=== PATIENT | male | born 1935 | race Hispanic/Latino ===

== ENCOUNTER 2017-09-11 12:41 | Emergency (ER) | payer MEDICARE ==
[~2017-09-11] VITALS: Ht 165.1 cm; Wt 82.1 kg
[~2017-09-11 12:41] MED LIST: FENOFIBRATE160 MG PO; GLIPIZIDE5 MG PO; LEVOTHYROXINE50 MCG PO; LOVASTATIN20 MG PO; METFORMIN HCL500 MG PO; NOVOLIN 70100 UNITS/ SC; TOBRADEX EYE O3.5 GM OP; VASOTEC10 M1 PO
[2017-09-11 14:43] LABS: BILIRUBIN,URINE NEGATIVE (NEGATIVE); CLARITY,URINE HAZY (CLEAR); COLOR,URINE YELLOW (YELLOW); KETONES,URINE NEGATIVE (NEGATIVE); LEUKOCYTE ESTERASE ,URINE NEGATIVE (NEGATIVE); NITRITE,URINE NEGATIVE (NEGATIVE); URINE UROBILINOGEN 0.2 mg/dL (0.2 - 1)
[2017-09-11 14:45] LABS: PROTEIN,URINE DIPSTICK 1+ (NEGATIVE)
[2017-09-11 15:13] LABS: EPITHELIAL CELLS,URINE RARE /LPF; RBC,URINE 0-5 /HPF (0-5); WBC,URINE (MAN) 0-5 /HPF (0-5)
[2017-09-11 15:14] LABS: INFLUENZAE A&B ANTIGEN (RAPID) POSITIVE FLU B (NEGATIVE); STREPTOCOCCUS GRP A ANTIGEN NEGATIVE (NEGATIVE)
[2017-09-11 15:23] LABS: BASOPHILS % 0.4 % (0.0-1.0); EOSINOPHILS % 0.1 % (0.0-6.0); HEMATOCRIT 42.8 % (38.2-49.6); HEMOGLOBIN 14.2 g/dL (14.0-18.0); LYMPHOCYTES # (AUTO) 1.6 (1.0-3.2); LYMPHOCYTES % 19.4 % (18.0-39.1); MEAN CORPUSCULAR HEMOGLOBIN 28.2 pg (28-32); MEAN CORPUSCULAR HGB CONC 33.2 g/dL (31-35); MEAN CORPUSCULAR VOLUME 85.1 fL (81-99); MONOCYTES # (AUTO) 0.8 (0.2-0.8); MONOCYTES % 9.7 % (4.4-11.3); NEUTROPHILS # (AUTO) 5.6 (2.1-6.9); PLATELET COUNT 244 x10e3/uL (140-360); RED BLOOD COUNT 5.03 x10e6/uL (4.3-5.7); RED CELL DISTRIBUTION WIDTH 13.6 % (11.7-14.4)
[2017-09-11] MEDS ORDERED: SODIUM CHLORIDE 0.9% 1000ML 1,000 ML IV SCH (15:45)
[2017-09-11] MEDS ORDERED: OSELTAMIVIR PHOSPHATE 75 MG CAP PO ONE (15:45)
[2017-09-11 15:46] LABS: ANION GAP 15.9 mmol/L (8-16); BLOOD UREA NITROGEN 16 mg/dL (7-26); BUN/CREATININE RATIO 16 (6-25); CALCIUM 9.5 mg/dL (8.4-10.2); CARBON DIOXIDE 23 mmol/L (22-29); CHLORIDE 104 mmol/L (98-107); EST GLOMERULAR FILTRATION RATE > 60 ML/MIN (60-); GLUCOSE 206 mg/dL (74-118); POTASSIUM 3.9 mmol/L (3.5-5.1); SODIUM 139 mmol/L (136-145)
--- NOTE | 2017-09-11 18:04 | Diagnostic Imaging Report ---
EXAM: XR CHEST 2 VIEWS DATE: 09/11/2017 1:25 PM INDICATION: COMPARISON: None FINDINGS: Lines and Tubes: None Heart and Mediastinum: Heart upper limits of normal. Lungs and Pleura: Probable basilar atelectasis. Bones and Soft Tissues: No acute findings. IMPRESSION: 1. Probable basilar atelectasis. Correlation recommended. Signed by: Dr. Ramos Colin MD on 09/11/2017 6:00 PM
== END 2017-09-11 17:05 | disposition home or self-care (01) ==
LOC: ER 12:41
DX: R50.9 Fever, unspecified (principal); R05 Cough; J11.1 Influenza due to unidentified influenza virus with other respiratory manifestations; I10 Essential (primary) hypertension; E11.9 Type 2 diabetes mellitus without complications
CPT/HCPCS: 36415; 71020; 80048; 81001; 83518; 85025; 87040; 87070; 87086; 87186; 87400; 99284

== ENCOUNTER 2023-02-19 14:11 | Inpatient (IN) | payer MEDICARE ==
[~2023-02-19] VITALS: Ht 162.6 cm; Wt 72.6 kg
[2023-02-19] MEDS ORDERED: SODIUM CHLORIDE 0.9% 1000ML 1,000 ML IV STA ×3 (14:47→15:18)
[2023-02-19 15:09] LABS: BASOPHILS # (AUTO) 0.1 (0.0-0.1); BASOPHILS % 0.6 % (0.0-1.0); EOSINOPHILS # (AUTO) 0.6 (0.0-0.4); EOSINOPHILS % 6.7 % (0.0-6.0); HEMATOCRIT 34.8 % (38.2-49.6); LYMPHOCYTES # (AUTO) 2.3 (1.0-3.2); MEAN CORPUSCULAR HEMOGLOBIN 26.6 pg (28-32); MEAN CORPUSCULAR HGB CONC 31.6 g/dL (31-35); MEAN CORPUSCULAR VOLUME 84.3 fL (81-99); MONOCYTES # (AUTO) 0.6 (0.2-0.8); MONOCYTES % 7.2 % (4.4-11.3); NEUTROPHILS # (AUTO) 4.7 (2.1-6.9); NEUTROPHILS % 57.1 % (38.7-80.0); PLATELET COUNT 327 x10e3/uL (140-360); RED BLOOD COUNT 4.13 x10e6/uL (4.3-5.7); RED CELL DISTRIBUTION WIDTH 14.2 % (11.7-14.4)
[2023-02-19 15:11] LABS: INR 0.9; PARTIAL THROMBOPLASTIN TIME 29.8 seconds (23.8-35.5); PROTHROMBIN TIME 12.6 seconds (11.9-14.5)
[2023-02-19 15:20] LABS: ALBUMIN 3.4 g/dL (3.5-5.0); ALBUMIN/GLOBULIN RATIO 0.9 (0.8-2.0); ANION GAP 18.9 mmol/L (8-16); CALCIUM 9.6 mg/dL (8.4-10.2); CREATININE, SERUM 1.06 mg/dL (0.72-1.25); MAGNESIUM 1.5 MG/DL (1.3-2.1); POTASSIUM 3.9 mmol/L (3.5-5.1)
[2023-02-19] MEDS ORDERED: SODIUM CHLORIDE 0.9% 1000ML 3,000 ML ONE (15:30)
[2023-02-19] MEDS ORDERED: PIPERACILLIN/TAZOBACTAM 3.375 GM VIAL ONE (15:31)
[2023-02-19] MEDS ORDERED: SODIUM CHLORIDE 0.9% 250ML 250 ML ONE ×2 (15:35→17:10)
[2023-02-19] MEDS ORDERED: IOPAMIDOL 370 MG/ML 100 ML INFUS..BTL INJ ONE (15:35)
[2023-02-19 15:40] LABS: B-TYPE NATRIURETIC PEPTIDE2 10.4 pg/mL (0-100)
[2023-02-19] MEDS ORDERED: Vancomycin IV 1 GM in SODIUM CHLORIDE 0.9% 250ML 250 ML IV ONE (16:00)
[2023-02-19 17:05] LABS: CLARITY,URINE CLOUDY (CLEAR); COLOR,URINE RED (YELLOW)
[2023-02-19 17:06] LABS: KETONES,URINE 2+ (NEGATIVE); LEUKOCYTE ESTERASE ,URINE LARGE (NEGATIVE); NITRITE,URINE NEGATIVE (NEGATIVE); PROTEIN,URINE DIPSTICK >=300 (NEGATIVE); URINE UROBILINOGEN 4 mg/dL (0.2 - 1)
[2023-02-19 17:07] LABS: BACTERIA,URINE FEW /HPF; EPITHELIAL CELLS,URINE FEW /LPF; RBC,URINE >50 /HPF (0-5)
[2023-02-19 17:08] LABS: MUCUS,URINE FEW (RARE)
[2023-02-19] MEDS ORDERED: Vancomycin IV 1 GM VIAL ONE (17:09)
[2023-02-19] MEDS ORDERED: ONDANSETRON HCL INJ 2MG/ML 2ML 2 MG/ML VIAL IV PRN (18:00)
[2023-02-19] MEDS ORDERED: SODIUM CHLORIDE 0.9% 1000ML 1,000 ML IV ONE (18:00)
[2023-02-19 21:30] VITALS: BP 168/70; PULSE 79; RESP 18; TEMP 97.3; O2SAT 98
[2023-02-19 22:25] VITALS: BP 183/73; PULSE 78; RESP 20; TEMP 97.3; O2SAT 95
[2023-02-19 22:35] VITALS: BP 183/73; PULSE 78; RESP 20; TEMP 97.3; O2SAT 95
[2023-02-19] MEDS ORDERED: LISINOPRIL-HCT1 EACH (23:16)
[2023-02-19] MEDS ORDERED: ATORVASTATIN CA20 MG PO (23:16)
[2023-02-19] MEDS ORDERED: PROBIOTICS1 EACH (23:16)
[2023-02-19] MEDS ORDERED: CLOPIDOGREL75 MG PO (23:16)
[2023-02-19] MEDS ORDERED: SINEMET 25-1001 EACH PO (23:16)
[2023-02-19] MEDS ORDERED: DOXYCYCLINE MO100 M1 PO (23:16)
[2023-02-19] MEDS ORDERED: ASPIRIN81 MG PO (23:16)
[2023-02-19] MEDS ORDERED: FINASTERIDE5 MG PO (23:16)
[2023-02-19] MEDS ORDERED: FLOMAX0.4 MG PO (23:16)
[2023-02-19] MEDS ORDERED: CLOTRIMAZOLE-BE15 GM TOP (23:19)
[2023-02-20] VITALS (7 sets, daily range): BP systolic 128–212; BP diastolic 61–77; PULSE 67–90; RESP 17–22; TEMP 97.6–98.6; O2SAT 98–100
[2023-02-20 06:16] LABS: BASOPHILS # (AUTO) 0.1 (0.0-0.1); BASOPHILS % 0.8 % (0.0-1.0); EOSINOPHILS # (AUTO) 0.5 (0.0-0.4); EOSINOPHILS % 7.4 % (0.0-6.0); HEMATOCRIT 27.6 % (38.2-49.6); HEMOGLOBIN 8.7 g/dL (14.0-18.0); LYMPHOCYTES # (AUTO) 1.4 (1.0-3.2); LYMPHOCYTES % 19.5 % (18.0-39.1); MEAN CORPUSCULAR HGB CONC 31.5 g/dL (31-35); MEAN CORPUSCULAR VOLUME 85.7 fL (81-99); MONOCYTES # (AUTO) 0.6 (0.2-0.8); MONOCYTES % 8.9 % (4.4-11.3); NEUTROPHILS # (AUTO) 4.5 (2.1-6.9); PLATELET COUNT 250 x10e3/uL (140-360); RED BLOOD COUNT 3.22 x10e6/uL (4.3-5.7); RED CELL DISTRIBUTION WIDTH 13.8 % (11.7-14.4)
[2023-02-20 06:33] LABS: ALBUMIN 2.7 g/dL (3.5-5.0); ALKALINE PHOSPHATASE 71 IU/L (40-150); ANION GAP 12.3 mmol/L (8-16); BLOOD UREA NITROGEN 20 mg/dL (7-26); BUN/CREATININE RATIO 24 (6-25); CALCIUM 8.3 mg/dL (8.4-10.2); CARBON DIOXIDE 23 mmol/L (22-29); CHLORIDE 108 mmol/L (98-107); CREATININE, SERUM 0.84 mg/dL (0.72-1.25); GLUCOSE 143 mg/dL (74-118); POTASSIUM 3.3 mmol/L (3.5-5.1); SODIUM 140 mmol/L (136-145)
[2023-02-20 06:39] LABS: ALANINE AMINOTRANSFERASE < 6 IU/L (0-55)
[2023-02-20] MEDS ORDERED: CLONIDINE HCL 0.1 MG TAB PO PRN (13:15)
[2023-02-20] MEDS ORDERED: DEXTROSE 50% SYRINGE 50 ML IV PRN (13:45)
[2023-02-20] MEDS: TAMSULOSIN HCL 0.4 MG CAP PO SCH (14:13)
[2023-02-20] MEDS: DOCUSATE SODIUM LIQD 100 MG/10 ML UDC NG SCH (14:14)
[2023-02-20] MEDS: ACETAMINOPHEN 325 MG TAB PO PRN (14:27)
[2023-02-20] MEDS ORDERED: POTASSIUM CHLORIDE 10MEQ EA PO ONE (14:30)
[2023-02-20] MEDS: CARBIDOPA/LEVODOPA 25/100 TAB PO SCH (15:59)
[2023-02-20] MEDS: OXYBUTYNIN CHLORIDE 5 MG TAB PO SCH ×2 (15:59→16:43)
[2023-02-20] MEDS: INSULIN REGULAR, HUMAN 100 UNIT/1 ML SQ SCH ×2 (16:30→21:11)
[2023-02-20 17:29] LABS: HEMOGLOBIN 8.9 g/dL (14.0-18.0)
[2023-02-20] MEDS: ATORVASTATIN 40 MG TAB PO SCH (21:04)
[2023-02-21] VITALS (8 sets, daily range): BP systolic 99–148; BP diastolic 50–94; PULSE 58–74; RESP 18–20; TEMP 97.3–98.6; O2SAT 95–100
[2023-02-21] MEDS ORDERED: SODIUM CHLORIDE 0.9% 250ML 250 ML ONE (03:21)
[2023-02-21 06:26] LABS: BASOPHILS % 0.7 % (0.0-1.0); EOSINOPHILS # (AUTO) 0.5 (0.0-0.4); EOSINOPHILS % 8.9 % (0.0-6.0); HEMOGLOBIN 8.7 g/dL (14.0-18.0); LYMPHOCYTES # (AUTO) 1.7 (1.0-3.2); LYMPHOCYTES % 27.2 % (18.0-39.1); MEAN CORPUSCULAR HEMOGLOBIN 26.9 pg (28-32); MEAN CORPUSCULAR HGB CONC 32.2 g/dL (31-35); MEAN CORPUSCULAR VOLUME 83.6 fL (81-99); MONOCYTES # (AUTO) 0.6 (0.2-0.8); NEUTROPHILS # (AUTO) 3.3 (2.1-6.9); NEUTROPHILS % 53.9 % (38.7-80.0); PLATELET COUNT 242 x10e3/uL (140-360); RED BLOOD COUNT 3.23 x10e6/uL (4.3-5.7)
[2023-02-21 07:09] LABS: ANION GAP 10.2 mmol/L (8-16); CALCIUM 8.6 mg/dL (8.4-10.2); CREATININE, SERUM 0.85 mg/dL (0.72-1.25); POTASSIUM 3.2 mmol/L (3.5-5.1)
[2023-02-21] MEDS: INSULIN REGULAR, HUMAN 100 UNIT/1 ML SQ SCH ×4 (07:30→21:44)
[2023-02-21] MEDS ORDERED: ASPIRIN 81 MG CHEW TAB PO SCH (09:00)
[2023-02-21] MEDS: DOCUSATE SODIUM LIQD 100 MG/10 ML UDC NG SCH ×2 (09:00→17:32)
[2023-02-21] MEDS: CARBIDOPA/LEVODOPA 25/100 TAB PO SCH ×2 (09:14→17:31)
[2023-02-21] MEDS: FINASTERIDE 5 MG TAB PO SCH (09:14)
[2023-02-21] MEDS: TAMSULOSIN HCL 0.4 MG CAP PO SCH (09:14)
[2023-02-21] MEDS: LISINOPRIL 20 MG TAB PO SCH (09:15)
[2023-02-21] MEDS: OXYBUTYNIN CHLORIDE 5 MG TAB PO SCH ×2 (09:15→17:31)
[2023-02-21] MEDS ORDERED: ONDANSETRON HCL 4 MG ORAL DISINTEGRATING TAB PO PRN (09:30)
[2023-02-21] MEDS: Morphine 2mg Syringe 2 MG/ML SYR IV PRN ×2 (09:39→14:05)
[2023-02-21] MEDS ORDERED: POTASSIUM CHLORIDE 10MEQ EA PO ONE (12:00)
[2023-02-21] MEDS: ACETAMINOPHEN 325 MG TAB PO PRN (13:55)
[2023-02-21 14:18] LABS: % IRON SATURATION 30 % (15-50); IRON 47 ug/dL (65-175); TOTAL IRON BINDING CAPACITY 157 ug/dL (261-478); TRANSFERRIN 112 mg/dL (174-364)
[2023-02-21] MEDS: ATORVASTATIN 40 MG TAB PO SCH (21:32)
[2023-02-22] VITALS (10 sets, daily range): BP systolic 110–157; BP diastolic 52–87; PULSE 56–71; RESP 16–19; TEMP 97–98.2; O2SAT 95–99
[2023-02-22 05:46] LABS: BASOPHILS # (AUTO) 0.1 (0.0-0.1); BASOPHILS % 0.7 % (0.0-1.0); EOSINOPHILS % 14.1 % (0.0-6.0); HEMOGLOBIN 8.4 g/dL (14.0-18.0); LYMPHOCYTES # (AUTO) 1.9 (1.0-3.2); LYMPHOCYTES % 27.8 % (18.0-39.1); MEAN CORPUSCULAR HEMOGLOBIN 26.7 pg (28-32); MEAN CORPUSCULAR HGB CONC 31.1 g/dL (31-35); MEAN CORPUSCULAR VOLUME 85.7 fL (81-99); MONOCYTES # (AUTO) 0.6 (0.2-0.8); MONOCYTES % 9.3 % (4.4-11.3); NEUTROPHILS # (AUTO) 3.3 (2.1-6.9); NEUTROPHILS % 47.8 % (38.7-80.0); PLATELET COUNT 237 x10e3/uL (140-360); RED BLOOD COUNT 3.15 x10e6/uL (4.3-5.7); RED CELL DISTRIBUTION WIDTH 14.5 % (11.7-14.4)
[2023-02-22 06:28] LABS: ANION GAP 11.9 mmol/L (8-16); CALCIUM 8.4 mg/dL (8.4-10.2); CREATININE, SERUM 1.26 mg/dL (0.72-1.25); POTASSIUM 3.9 mmol/L (3.5-5.1)
[2023-02-22] MEDS: INSULIN REGULAR, HUMAN 100 UNIT/1 ML SQ SCH ×4 (07:30→21:44)
[2023-02-22] MEDS: FINASTERIDE 5 MG TAB PO SCH (09:50)
[2023-02-22] MEDS: CARBIDOPA/LEVODOPA 25/100 TAB PO SCH ×2 (09:50→17:30)
[2023-02-22] MEDS: TAMSULOSIN HCL 0.4 MG CAP PO SCH (09:50)
[2023-02-22] MEDS: OXYBUTYNIN CHLORIDE 5 MG TAB PO SCH ×2 (09:50→17:30)
[2023-02-22] MEDS: DOCUSATE SODIUM LIQD 100 MG/10 ML UDC NG SCH ×2 (09:51→17:30)
[2023-02-22] MEDS: LISINOPRIL 20 MG TAB PO SCH (09:51)
[2023-02-22] MEDS: ACETAMINOPHEN 325 MG TAB PO PRN (17:30)
[2023-02-22] MEDS: ATORVASTATIN 40 MG TAB PO SCH (21:35)
[2023-02-23] VITALS: BP 118/57; PULSE 72; RESP 18; TEMP 98.1; O2SAT 99
[2023-02-23 04:00] VITALS: BP 151/60; PULSE 71; RESP 18; TEMP 98.2; O2SAT 98
[2023-02-23 05:46] LABS: BASOPHILS # (AUTO) 0.1 (0.0-0.1); BASOPHILS % 0.8 % (0.0-1.0); EOSINOPHILS # (AUTO) 0.8 (0.0-0.4); EOSINOPHILS % 13.2 % (0.0-6.0); HEMATOCRIT 26.7 % (38.2-49.6); HEMOGLOBIN 8.3 g/dL (14.0-18.0); LYMPHOCYTES # (AUTO) 1.6 (1.0-3.2); LYMPHOCYTES % 26.6 % (18.0-39.1); MEAN CORPUSCULAR HEMOGLOBIN 26.9 pg (28-32); MEAN CORPUSCULAR HGB CONC 31.1 g/dL (31-35); MEAN CORPUSCULAR VOLUME 86.7 fL (81-99); MONOCYTES # (AUTO) 0.6 (0.2-0.8); MONOCYTES % 9.2 % (4.4-11.3); NEUTROPHILS % 49.9 % (38.7-80.0); PLATELET COUNT 245 x10e3/uL (140-360); RED BLOOD COUNT 3.08 x10e6/uL (4.3-5.7); RED CELL DISTRIBUTION WIDTH 14.4 % (11.7-14.4)
[2023-02-23 05:57] LABS: ANION GAP 10.8 mmol/L (8-16); CALCIUM 8.7 mg/dL (8.4-10.2); CREATININE, SERUM 1.11 mg/dL (0.72-1.25); POTASSIUM 3.8 mmol/L (3.5-5.1)
[2023-02-23] MEDS: INSULIN REGULAR, HUMAN 100 UNIT/1 ML SQ SCH ×2 (07:30→12:24)
[2023-02-23 07:32] VITALS: BP 134/57; PULSE 58; RESP 19; TEMP 98.5; O2SAT 100
[2023-02-23 07:51] VITALS: BP 134/57; PULSE 58; RESP 19; TEMP 98.5; O2SAT 100
[2023-02-23] MEDS: CARBIDOPA/LEVODOPA 25/100 TAB PO SCH (09:00)
[2023-02-23] MEDS: TAMSULOSIN HCL 0.4 MG CAP PO SCH (09:00)
[2023-02-23] MEDS: FINASTERIDE 5 MG TAB PO SCH (09:01)
[2023-02-23] MEDS: DOCUSATE SODIUM LIQD 100 MG/10 ML UDC NG SCH (09:01)
[2023-02-23] MEDS: LISINOPRIL 20 MG TAB PO SCH (09:01)
[2023-02-23] MEDS: OXYBUTYNIN CHLORIDE 5 MG TAB PO SCH (09:01)
[2023-02-23 11:21] VITALS: BP 132/64; PULSE 64; RESP 19; TEMP 98.3; O2SAT 99
== END 2023-02-23 14:10 | disposition home or self-care (01) | DRG 726 ==
LOC: ER 14:22 → ERHOLD 17:56 → MED/SURG3 21:21
PROVIDERS: ADMIT Internal Medicine; ATTEND Internal Medicine
DX: N40.1 Benign prostatic hyperplasia with lower urinary tract symptoms (principal); R31.9 Hematuria, unspecified; D50.0 Iron deficiency anemia secondary to blood loss (chronic); I10 Essential (primary) hypertension; E11.9 Type 2 diabetes mellitus without complications; G20 Parkinson's disease; M19.90 Unspecified osteoarthritis, unspecified site; I44.4 Left anterior fascicular block; Z86.73 Personal history of transient ischemic attack (TIA), and cerebral infarction without residual deficits; Z20.822 Contact with and (suspected) exposure to COVID-19; Z79.4 Long term (current) use of insulin; Z79.84 Long term (current) use of oral hypoglycemic drugs
CPT/HCPCS: 36415; 71045; 74018; 74178; 80048; 80053; 81001; 82550; 82553; 82948; 83540; 83605; 83735; 83880; 84466; 84484; 85014; 85018; 85025; 85610; 85730; 86850; 86900; 87040; 87086; 93005; 99252; 99284; J2270; J2543; J7030; J7050; Q0162; Q9967